=== PATIENT | male | born 1980 | race African-American/Black ===

== ENCOUNTER 2017-01-11 15:52 | Emergency (ER) | payer BC ==
[~2017-01-11] VITALS: Ht 182.9 cm; Wt 85.3 kg
[2017-01-11] MEDS ORDERED: CIPRODEX OTIC7.5 ML LEFT EAR (16:46)
[2017-01-11] MEDS ORDERED: AMOXICILLIN500 MG PO (16:46)
[2017-01-11 17:03] VITALS: BP 106/68
== END 2017-01-11 17:04 | disposition home or self-care (01) ==
LOC: EME 15:52
DX: H66.92 Otitis media, unspecified, left ear (principal)
CPT/HCPCS: 99281; 99283